=== PATIENT | female | born 1965 | race African-American/Black ===

== ENCOUNTER 2017-10-03 22:42 | Emergency (ER) | payer SELFPAY ==
[2017-10-03 22:52] VITALS: BP 135/90; PULSE 63; TEMP 98.9; BMI 25.0
--- NOTE | 2017-10-04 00:42 | PDOC ---
History of Present Illness - General History Source: Patient Exam Limitations: No Limitations - History of Present Illness Initial Comments: 10/04/17 01:12 The patient is a 52 year old female with no significant PMH who presents to the emergency department with left shoulder pain s/p injury last night. 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 She also notes left sided neck pain which radiates up her neck and down her left arm. She denies falling, hitting her head, or LOC. She denies taking medications for pain. The patient is right hand dominant. The patient denies chest pain, shortness of breath, headache and dizziness. Denies fever, chills, nausea, vomit, diarrhea and constipation. Denies dysuria, frequency, urgency and hematuria. Allergies: Codeine Past surgical history: None reported. Social history: No reported cigarette, alcohol, or drug use. PCP: Dr. Nimo Workman <Matheus Rapp - Last Filed: 10/04/17 01:15> - General History Source: Patient <Edna Ramonan - Last Filed: 10/04/17 01:21> - General Chief Complaint: Pain, Acute Stated Complaint: SHOULDER PAIN Time Seen by Provider: 10/04/17 00:28 Past History <Matheus Rapp - Last Filed: 10/04/17 01:15> - Past Medical History COPD: No - Suicide/Smoking/Psychosocial Hx Smoking History: Never smoked <Refugio Ramon - Last Filed: 10/04/17 01:21> - Past Medical History Allergies/Adverse Reactions: Allergies Allergy/AdvReac Type Severity Reaction Status Date / Time codeine Allergy Verified 10/03/17 22:50 Home Medications: Ambulatory Orders Ibuprofen [Motrin] 600 mg PO TID #30 tablet 10/04/17 Methocarbamol [Robaxin -] 500 mg PO TID #30 tablet 10/04/17 Review of Systems - Review of Systems Able to Perform ROS?: Yes Comments:: 10/04/17 01:15 CONSTITUTIONAL: Absent: fever, chills, diaphoresis, generalized weakness, malaise, loss of appetite HEENT: Absent: rhinorrhea, nasal congestion, throat pain, throat swelling, difficulty swallowing, mouth swelling, ear pain, eye pain, visual Changes CARDIOVASCULAR: Absent: chest pain, syncope, palpitations, irregular heart rate, lightheadedness , peripheral edema RESPIRATORY: Absent: cough, shortness of breath, dyspnea with exertion, orthopnea, wheezing, stridor, hemoptysis GASTROINTESTINAL: Absent: abdominal pain, abdominal distension, nausea, vomiting, diarrhea, constipation, melena, hematochezia GENITOURINARY: Absent: dysuria, frequency, urgency, hesitancy, hematuria, flank pain, genital pain MUSCULOSKELETAL: (+) Left shoulder pain. (+) Left sided neck pain with upper neck and LUE radiation. Absent: arthralgia, joint swelling SKIN: Absent: rash, itching, pallor HEMATOLOGIC/IMMUNOLOGIC: Absent: easy bleeding, easy bruising, lymphadenopathy, frequent infections ENDOCRINE: Absent: unexplained weight gain, unexplained weight loss, heat intolerance, cold intolerance NEUROLOGIC: Absent: headache, focal weakness or paresthesias, dizziness, unsteady gait, seizure, mental status changes, bladder or bowel incontinence PSYCHIATRIC: Absent: anxiety, depression, suicidal or homicidal ideation, hallucinations. <Matheus Rapp - Last Filed: 10/04/17 01:15> *Physical Exam - Vital Signs Last Vital Signs Temp Pulse Resp BP Pulse Ox 98.9 F 63 18 135/90 100 10/03/17 22:50 10/03/17 22:50 10/03/17 22:50 10/03/17 22:50 10/03/17 22:50 - Physical Exam Comments: 10/04/17 01:15 GENERAL: (+) Mild distress. Well developed, well nourished. Awake and alert. HEENT: Normocephalic, atraumatic. PERRLA, EOMI. No conjunctival pallor. Sclera are non- icteric. Moist mucous membranes. Oropharynx is clear. NECK: Supple. Full ROM. No JVD. Carotid pulses 2+ and symmetric, without bruits. No thyromegaly. No lymphadenopathy. CARDIOVASCULAR: Regular rate and rhythm. No murmurs, rubs, or gallops. Distal pulses are 2+ and symmetric. PULMONARY: No evidence of respiratory distress. Lungs clear to auscultation bilaterally. No wheezing, rales or rhonchi. ABDOMINAL: Soft. Non-tender. Non-distended. No rebound or guarding. No organomegaly. Normoactive bowel sounds. MUSCULOSKELETAL Normal range of motion at all joints. No bony deformities or tenderness. No CVA tenderness. EXTREMITIES: (+) Mild tenderness to medial and posterior shoulder girdle. (+) Mild cervical muscle tenderness / spasm. No cyanosis. No clubbing. No edema. No calf tenderness. SKIN: Warm and dry. Normal capillary refill. No rashes. No jaundice. NEUROLOGICAL: Alert, awake, appropriate. Cranial nerves 2-12 intact. No deficits to light touch and temperature in face, upper extremities and lower extremities. No motor deficits in the in face, upper extremities and lower extremities. Normoreflexic in the upper and lower extremities. Normal speech. Toes are down- going bilaterally. Gait is normal without ataxia. PSYCHIATRIC: Cooperative. Good eye contact. Appropriate mood and affect. <Matheus Rapp - Last Filed: 10/04/17 01:15> - Vital Signs Last Vital Signs Temp Pulse Resp BP Pulse Ox 98.9 F 63 18 135/90 100 10/03/17 22:50 10/03/17 22:50 10/03/17 22:50 10/03/17 22:50 10/03/17 22:50 <Refugio Ramon - Last Filed: 10/04/17 01:21> ED Treatment Course - Medications Given in the ED: ED Medications Discontinued Medications Generic Name Dose Route Start Last Admin Trade Name Moisesq PRN Reason Stop Dose Admin Ibuprofen 600 mg 10/04/17 00:51 10/04/17 01:11 Motrin - PO 10/04/17 00:52 600 mg ONCE STA Administration Methocarbamol 500 mg 10/04/17 00:51 10/04/17 01:11 Robaxin - PO 10/04/17 00:52 500 mg ONCE ONE Administration <Matheus Rapp - Last Filed: 10/04/17 01:15> Medical Decision Making - Medical Decision Making 10/04/17 00:55 Dr. Ramon: The scribe's documentation has been prepared under my direction and personally reviewed by me in its entirery. I confirm that the note above accurately reflects all work, treatment, procedures, and medical decision making performed by me. <Refugio Ramon - Last Filed: 10/04/17 01:21> *DC/Admit/Observation/Transfer - Attestations Scribe Attestion: 10/04/17 01:15 Documentation prepared by Matheus Rapp, acting as medical secretary receptionist for Refugio Ramon DO. <Matheus Rapp - Last Filed: 10/04/17 01:15> - Discharge Dispostion Admit: No <Refugio Ramon - Last Filed: 10/04/17 01:21> Diagnosis at time of Disposition: Muscle spasm of left shoulder Contusion of left shoulder Qualifiers: Encounter type: initial encounter Qualified Code(s): S40.012A - Contusion of left shoulder, initial encounter - Discharge Dispostion Disposition: HOME Condition at time of disposition: Stable - Prescriptions Prescriptions: Ibuprofen [Motrin] 600 mg PO TID #30 tablet Methocarbamol [Robaxin -] 500 mg PO TID #30 tablet - Referrals Referrals: Nimo Workman MD [Primary Care Provider] - Manny Deutsch MD [Staff Physician] - - Patient Instructions Printed Discharge Instructions: DI for Contusion, DI for Shoulder Sprain - Post Discharge Activity Forms/Work/School Notes: Back to Work
[2017-10-04] MEDS ORDERED: METHOCARBAMOL 500 MG TABLET PO ONE (00:51)
[2017-10-04] MEDS ORDERED: IBUPROFEN 600 MG TABLET (FP) PO STA (00:51)
[2017-10-04] MEDS ORDERED: IBUPROFEN 600 MG TABLET (FP) PO ONE (01:09)
[2017-10-04] MEDS ORDERED: METHOCARBAMOL 500 MG TABLET ONE (01:09)
== END 2017-10-04 01:30 | disposition home or self-care (01) ==
LOC: JER 22:42
DX: S40.012A Contusion of left shoulder, initial encounter (principal); M62.838 Other muscle spasm; W22.8XXA Striking against or struck by other objects, initial encounter; Y93.F9 Activity, other caregiving; Y92.89 Other specified places as the place of occurrence of the external cause; Y99.0 Civilian activity done for income or pay
CPT/HCPCS: 99281-25

== ENCOUNTER 2018-09-21 01:23 | Emergency (ER) | payer OTHER ==
[2018-09-21 01:41] VITALS: TEMP 97.2; BMI 26.4
[2018-09-21] MEDS ORDERED: SODIUM CHLORIDE 1,000 ML IV SCH (02:15)
[2018-09-21] MEDS ORDERED: METOCLOPRAMIDE HCL INJECTION 10 MG/2 ML VIAL IVPUSH ONE (02:37)
--- NOTE | 2018-09-21 02:39 | PDOC ---
Attending Attestation - Resident Resident Name: Merline Lozada - ED Attending Attestation I have performed the following: I have examined & evaluated the patient, The case was reviewed & discussed with the resident, I agree w/resident's findings & plan - HPI HPI: 09/21/18 07:17 Pt went to the [facility] ER for an on the work injury. She was examined and cleared and on her way driving home, when she started vomiting. Came to the ER. Here she is afebrile, but vomiting. Everyone in our [employer] community is vomiting with viral GI symptoms. - Physicial Exam PE: 09/21/18 07:19 Agree with resident exam. Abd soft NT ND No flank pain No pitting edema Pt has no fever - Medical Decision Making 09/21/18 07:19 Pt has normal WBC and CBC; Pt has no fever; Potassium is low; she will be given K+ and MG+ 09/21/18 07:43 Pt is feeling better and she will be sent home. Heart Score/ECG Review - ECG Intrepretation Rhythm: Regular Rhythm - [place]: Normal - P and SC Delta Wave(s) Present: No WPW: No - QRS Poor R Wave Progression: No Q Wave Present: No - ST and T Early Repolarization: No Non Specific ST-T Wave changes: No Flattened T Waves: No Prolonged Q-T Interval: No - ECG Impressions Normal ECG: Yes Non-specific ST Elevation: Yes Ischemic Changes: Yes (septal flipped Ts) Bradycardia: Yes Torsades victorino Pointes: No WPW: No
--- NOTE | 2018-09-21 02:48 | PDOC ---
History of Present Illness - General Chief Complaint: Nausea/Vomiting Stated Complaint: VOMITING/CONTUSION Time Seen by Provider: 09/21/18 01:54 History Source: Patient Exam Limitations: No Limitations - History of Present Illness Initial Comments: 09/21/18 03:17 53 year old woman with no significant past medical history who presents with headache, shortness of breath, nausea and 6 episodes of NBNB vomiting that onset 4 hours after being given percocet, tramadol and motrin at [facility] when she was being evaluated for L knee pain after a fall onto her knees. The patient has an allergy to codeine. The patient denies throat tightening or restriction of the airway, denies chest pain, abdominal pain, diarrhea, constipation, recent travel, recent illness or fever. The patient is anxious at bedside and provided limited further history. Past History - Past Medical History Allergies/Adverse Reactions: Allergies Allergy/AdvReac Type Severity Reaction Status Date / Time codeine Allergy Verified 09/21/18 01:39 Home Medications: Ambulatory Orders Ibuprofen [Motrin] 600 mg PO TID #30 tablet 10/04/17 Methocarbamol [Robaxin -] 500 mg PO TID #30 tablet 10/04/17 Ondansetron [Zofran -] 4 mg PO BID #14 tablet 09/21/18 COPD: No - Suicide/Smoking/Psychosocial Hx Smoking History: Never smoked Have you smoked in the past 12 months: No Information on smoking cessation initiated: No Hx Alcohol Use: No Drug/Substance Use Hx: No Review of Systems - Review of Systems Able to Perform ROS?: Yes Is the patient limited [place]e proficient: No Constitutional: No: Chills, Diaphoresis, Fever HEENTM: No: Blurred Vision, Tinnitus Respiratory: Yes: See HPI, Shortness of Breath. No: Cough, Orthopnea Cardiac (ROS): No: Chest Pain, Lightheadedness, Palpitations ABD/GI: No: Constipated, Diarrhea, Nausea, Vomiting : No: Burning, Dysuria, Incontinence Musculoskeletal: No: Back Pain Neurological: Yes: Headache. No: Numbness, Tingling *Physical Exam - Vital Signs Last Vital Signs Temp Pulse Resp BP Pulse Ox 97.2 F L 67 18 125/73 100 09/21/18 01:39 09/21/18 01:39 09/21/18 01:39 09/21/18 01:39 09/21/18 01:39 - Physical Exam Comments: 09/21/18 03:33 GENERAL: examined after benadryl, lethargic but arousable. HEAD: No signs of trauma, normocephalic, atraumatic EYES: EOMI, sclera anicteric, conjunctiva clear ENT: oropharynx clear without exudates. Moist mucosa NECK: Normal ROM, supple LUNGS: No distress, speaks full sentences, clear to auscultation bilaterally HEART: Regular rate and rhythm, normal S1 and S2, no murmurs, rubs or gallops, peripheral pulses normal and equal bilaterally. ABDOMEN: Soft, nontender, normoactive bowel sounds. No guarding, no rebound. No masses EXTREMITIES : Normal inspection, no edema. No clubbing or cyanosis, L leg in air cast, palpable pulses NEUROLOGICAL: Cranial nerves II through XII grossly intact. Normal speech, no focal sensorimotor deficits SKIN: Warm, Dry, normal turgor, no rashes or lesions noted Moderate Sedation - Procedure Monitoring Vital Signs: Procedure Monitoring Vital Signs Temperature 97.2 F L 09/21/18 01:39 Pulse Rate 67 09/21/18 01:39 Respiratory Rate 18 09/21/18 01:39 Blood Pressure 125/73 09/21/18 01:39 O2 Sat by Pulse Oximetry (%) 100 09/21/18 01:39 ED Treatment Course - LABORATORY CBC & Chemistry Diagram: 09/21/18 03:50 09/21/18 03:50 - Medications Given in the ED: ED Medications Discontinued Medications Generic Name Dose Route Start Last Admin Trade Name Freq PRN Reason Stop Dose Admin Diphenhydramine HCl 50 mg 09/21/18 02:07 09/21/18 02:26 Benadryl Injection - IVPUSH 09/21/18 02:08 50 mg ONCE ONE Administration Medical Decision Making - Medical Decision Making 09/21/18 03:22 53 year old woman with no significant past medical history who presents with headache, shortness of breath and rapid breathing, nausea and 6 episodes of NBNB vomiting that onset 4 hours after being given percocet, tramadol and motrin at [facility] when she was being evaluated for L knee pain after a fall onto her knees. The patient has an allergy to codeine. The patient denies throat tightening or restriction of the airway, denies chest pain , abdominal pain, diarrhea, constipation, recent travel, recent illness or fever. The patient is anxious at bedside and provided limited further history. ED Course: Consider differnetial including but not limited to allergix reaction vs anxiety vs gastroenteritis Patient treated with ivf, benadryl and reglan for symptoms of possible allergic reaction, headache and nausea. Will monitor and reassess patient. Patient reassessed notes improvement of all symptoms. Patient desires to go home. Patient stable for discharge. Informed of all lab and imaging results. Given follow up instructions and strict return precautions. Patient expressed understanding and agree to plan. *DC/Admit/Observation/Transfer Diagnosis at time of Disposition: Vomiting - Discharge Dispostion Disposition: HOME Condition at time of disposition: Stable Decision to Admit order: No - Prescriptions Prescriptions: Ondansetron [Zofran -] 4 mg PO BID #14 tablet - Referrals - Patient Instructions Printed Discharge Instructions: DI for Vomiting -- Adult Additional Instructions: You were seen in the ED for complaints of vomiting. In the ED you were evaluated with labwork. Your results did not present a need for immediate hospitalization. You are advised to follow up with your Primary Care Physician within 1 week. You were given a prescription for anti-nausea Zofran medication. Please take all medications as indicated. Return to the ED immediately if you experience worsening dizziness, headaches, nausea, vomiting, fevers, chest pain or shortness of breath. - Post Discharge Activity
[2018-09-21 04:02] LABS: HEMATOCRIT 35.2 % (32.4-45.2); MCH 27.7 pg (25.7-33.7); MEAN CELL VOLUME 81.3 fl (80-96); RBC 4.33 M/mm3 (3.60-5.2); RDW 13.3 % (11.6-15.6)
[2018-09-21 04:50] LABS: ALBUMIN 3.4 g/dl (3.4-5.0); ALK PHOS 78 U/L (45-117); ANION GAP 9 MMOL/L (8-16); BILIRUBIN,TOTAL 0.4 mg/dL (0.2-1); BLOOD UREA NITROGEN 11 mg/dL (7-18); CALCIUM 7.9 mg/dL (8.5-10.1); CHLORIDE 106 mmol/L (98-107); CO2 23 mmol/L (21-32); CREATININE 0.9 mg/dL (0.55-1.3); GLUCOSE,RANDOM 102 mg/dL (74-106); POTASSIUM 3.4 mmol/L (3.5-5.1); SGOT/AST 23 U/L (15-37); SGPT/ALT 23 U/L (13-61); SODIUM 139 mmol/L (136-145); TOT PROT 6.8 g/dl (6.4-8.2)
[2018-09-21 05:05] LABS: PLATELET ESTIMATE NORMAL
[2018-09-21 05:06] LABS: MEAN PLT VOLUME 9.7 fl (7.5-11.1); PLATELET COUNT 156 K/MM3 (134-434); WHITE BLOOD COUNT 6.4 K/mm3 (4.0-10.0)
[2018-09-21] MEDS ORDERED: MAGNESIUM SULF 50% (8.12 MEQ/2 ML-1 GM VIAL) IVPB ONE (06:31)
[2018-09-21] MEDS ORDERED: POTASSIUM CHLORIDE TABS 20 MEQ TABLET.ER (FP) PO ONE (06:31)
[2018-09-21 09:09] VITALS: BP 134/85; PULSE 52
--- NOTE | 2018-09-21 11:24 | EKG ---
Test Reason : Blood Pressure : / mmHG Vent. Rate : 052 BPM Atrial Rate : 052 BPM P-R Int : 206 ms QRS Dur : 088 ms QT Int : 472 ms P-R-T Axes : 036 143 048 degrees QTc Int : 438 ms SINUS BRADYCARDIA RIGHT AXIS DEVIATION LOW VOLTAGE QRS SEPTAL INFARCT (CITED ON OR BEFORE 13-FEB-2007) ABNORMAL ECG WHEN COMPARED WITH ECG OF 13-FEB-2007 10:28, NO SIGNIFICANT CHANGE WAS FOUND Confirmed by QUINTON HOLLIS MD ([id number]) on 09/21/2018 11:24:42 AM Referred By: Confirmed By:QUINTON HOLLIS MD
== END 2018-09-21 09:15 | disposition home or self-care (01) ==
LOC: JER 01:23
PROC: 3E033GC Introduction of Other Therapeutic Substance into Peripheral Vein, Percutaneous Approach (ICD-10-PCS; principal; 2018-09-21)
DX: R11.10 Vomiting, unspecified (principal); E87.6 Hypokalemia
CPT/HCPCS: 36415; 80053; 85025; 93005; 93010; 99284-25; J7030

== ENCOUNTER 2021-04-30 16:01 | Emergency (ER) | payer OTHER ==
[2021-04-30 16:14] VITALS: BP 133/75; PULSE 58; TEMP 97; BMI 24.0
[2021-04-30] MEDS ORDERED: ONDANSETRON 4 MG/2 ML VIAL IVPUSH ONE (16:39)
[2021-04-30] MEDS ORDERED: SODIUM CHLORIDE 1,000 ML IV STA (16:39)
[2021-04-30] MEDS ORDERED: ONDANSETRON 4 MG/2 ML VIAL ONE (17:01)
[2021-04-30 17:07] LABS: BASO % 0.8 % (0-2.0); EOS % 6.6 % (0-4.5); HEMATOCRIT 34.2 % (32.4-45.2); HEMOGLOBIN 11.2 GM/dL (10.7-15.3); MCH 26.6 pg (25.7-33.7); MCHC 32.9 g/dl (32.0-36.0); MEAN CELL VOLUME 80.9 fl (80-96); MEAN PLT VOLUME 7.8 fl (7.5-11.1); MONO % 7.2 % (3.8-10.2); NEUT % 44.4 % (42.8-82.8); PLATELET COUNT 180 10^3/uL (134-434); RBC 4.22 M/mm3 (3.60-5.2)
[2021-04-30 17:26] LABS: CHLORIDE 110 mmol/L (98-107); SODIUM 144 mmol/L (136-145)
[2021-04-30 17:28] LABS: ALBUMIN 3.6 g/dl (3.4-5.0); ANION GAP 7 MMOL/L (8-16); BLOOD UREA NITROGEN 16.9 mg/dL (7-18); CALCIUM 8.3 mg/dL (8.5-10.1); CO2 27 mmol/L (21-32); GLUCOSE,RANDOM 128 mg/dL (74-106); LIPASE 186 U/L (73-393)
[2021-04-30 17:32] LABS: CREATININE 1.2 mg/dL (0.55-1.3); SGOT/AST 20 U/L (15-37); SGPT/ALT 20 U/L (13-61)
[2021-04-30 17:33] LABS: BILIRUBIN,TOTAL 0.4 mg/dL (0.2-1); TOT PROT 6.9 g/dl (6.4-8.2)
[2021-04-30 17:35] LABS: ALK PHOS 57 U/L (45-117)
[2021-04-30] MEDS ORDERED: ACETAMINOPHEN 1000 MG/100 ML VIAL (NON FORMULARY) IVPB ONE (18:37)
[2021-04-30] MEDS ORDERED: ACETAMINOPHEN INJECTION 100 ML IVPB ONE (18:49)
== END 2021-04-30 23:39 | disposition home or self-care (01) ==
LOC: JER 16:01 → JERFT 16:01
PROC: 3E033NZ Introduction of Analgesics, Hypnotics, Sedatives into Peripheral Vein, Percutaneous Approach (ICD-10-PCS; principal; 2021-04-30)
PROC: 3E033GC Introduction of Other Therapeutic Substance into Peripheral Vein, Percutaneous Approach (ICD-10-PCS; 2021-04-30)
PROC: 3E0337Z Introduction of Electrolytic and Water Balance Substance into Peripheral Vein, Percutaneous Approach (ICD-10-PCS; 2021-04-30)
DX: K80.20 Calculus of gallbladder without cholecystitis without obstruction (principal); M25.511 Pain in right shoulder
CPT/HCPCS: 36415; 73030-TC-RT-FY; 76705-TC; 80053; 82550; 83690; 84484; 85025; 93005; 93010; 99284-25; C9803; J0131; U0003; U0005

== ENCOUNTER 2021-10-22 15:21 | Emergency (ER) | payer OTHER ==
[2021-10-22 15:31] VITALS: TEMP 97; BMI 26.6
[2021-10-22] MEDS ORDERED: MECLIZINE HCL 25 MG TABLET (FP) PO ONE (16:49)
[2021-10-22] MEDS ORDERED: ACETAMINOPHEN 500 MG TABLET (FP) PO ONE (16:49)
[2021-10-22] MEDS ORDERED: MECLIZINE HCL 25 MG TABLET (FP) ONE (16:52)
[2021-10-22] MEDS ORDERED: ACETAMINOPHEN 325 MG TABLET (FP) ONE (16:52)
[2021-10-22 17:23] LABS: BASO % 1.1 % (0-2.0); EOS % 3.6 % (0-4.5); HEMATOCRIT 35.7 % (32.4-45.2); HEMOGLOBIN 11.7 GM/dL (10.7-15.3); MCH 26.6 pg (25.7-33.7); MCHC 32.7 g/dl (32.0-36.0); MEAN CELL VOLUME 81.2 fl (80-96); MEAN PLT VOLUME 8.1 fl (7.5-11.1); NEUT % 46.3 % (42.8-82.8); PLATELET COUNT 195 10^3/uL (134-434); RDW 13.2 % (11.6-15.6); WHITE BLOOD COUNT 3.7 K/mm3 (4.0-10.0)
[2021-10-22 17:44] LABS: CHLORIDE 109 mmol/L (98-107); SODIUM 142 mmol/L (136-145)
[2021-10-22 17:46] LABS: CALCIUM 8.8 mg/dL (8.5-10.1)
[2021-10-22 17:47] LABS: ALBUMIN 3.6 g/dl (3.4-5.0); ANION GAP 6 MMOL/L (8-16); BLOOD UREA NITROGEN 17.4 mg/dL (7-18); CO2 28 mmol/L (21-32); GLUCOSE,RANDOM 99 mg/dL (74-106)
[2021-10-22 17:50] LABS: CREATININE 1.1 mg/dL (0.55-1.3); SGOT/AST 17 U/L (15-37); SGPT/ALT 17 U/L (13-61)
[2021-10-22 17:52] LABS: ALK PHOS 61 U/L (45-117); BILIRUBIN,TOTAL 0.4 mg/dL (0.2-1)
[2021-10-22 18:29] VITALS: BP 129/83; PULSE 58
== END 2021-10-22 19:03 | disposition home or self-care (01) ==
LOC: JER 15:21
DX: R00.2 Palpitations (principal)
CPT/HCPCS: 36415; 80053; 82550; 84484; 85025; 93005; 93010; 99284-25

== ENCOUNTER 2022-06-09 11:53 | Emergency (ER) | payer OTHER ==
[2022-06-09 11:59] VITALS: BP 118/68; PULSE 64; RESP 16; TEMP 98.1; BMI 24.9
[2022-06-09] MEDS ORDERED: diazePAM 5 MG TABLET PO ONE (12:48)
[2022-06-09] MEDS ORDERED: KETOROLAC TROMETHAMINE 30 MG/1 ML VIAL IM ONE (12:48)
[2022-06-09] MEDS ORDERED: LIDOCAINE 5% TOPICAL PATCH TP ONE (12:49)
[2022-06-09] MEDS ORDERED: diazePAM 5 MG TABLET ONE (12:50)
[2022-06-09] MEDS ORDERED: LIDOCAINE 5% TOPICAL PATCH ONE (12:50)
[2022-06-09] MEDS ORDERED: KETOROLAC TROMETHAMINE 30 MG/1 ML VIAL ONE (12:50)
[2022-06-09] MEDS ORDERED: LIDOCAINE PATCH REMOVAL MC ONE (22:00)
== END 2022-06-09 13:20 | disposition home or self-care (01) ==
LOC: JERFT 11:53
PROC: 3E023GC Introduction of Other Therapeutic Substance into Muscle, Percutaneous Approach (ICD-10-PCS; principal; 2022-06-09)
DX: M67.853 Other specified disorders of tendon, right hip (principal); M77.8 Other enthesopathies, not elsewhere classified
CPT/HCPCS: 99284-25

== ENCOUNTER 2022-06-17 14:26 | Emergency (ER) | payer OTHER ==
[2022-06-17 14:28] VITALS: BP 139/79; PULSE 51; RESP 18; TEMP 98; BMI 24.0
[2022-06-17] MEDS ORDERED: KETOROLAC TROMETHAMINE 60 MG/2 ML VIAL IM ONE (14:59)
[2022-06-17] MEDS ORDERED: diazePAM 2 MG TABLET PO ONE (15:00)
[2022-06-17] MEDS ORDERED: ACETAMINOPHEN 325 MG TABLET (FP) PO ONE (15:00)
[2022-06-17] MEDS ORDERED: LIDOCAINE 5% TOPICAL PATCH TP ONE (15:00)
[2022-06-17] MEDS ORDERED: LIDOCAINE 5% TOPICAL PATCH ONE ×2 (15:03→15:12)
[2022-06-17] MEDS ORDERED: KETOROLAC TROMETHAMINE 30 MG/1 ML VIAL ONE (15:04)
[2022-06-17] MEDS ORDERED: diazePAM 2 MG TABLET ONE ×2 (15:04→15:12)
[2022-06-17] MEDS ORDERED: ACETAMINOPHEN 325 MG TABLET (FP) ONE (15:04)
[2022-06-17] MEDS ORDERED: LIDOCAINE PATCH REMOVAL MC SCH (22:00)
== END 2022-06-17 17:07 | disposition home or self-care (01) ==
LOC: JER 14:26 → JERFT 14:26
PROC: 3E0233Z Introduction of Anti-inflammatory into Muscle, Percutaneous Approach (ICD-10-PCS; principal; 2022-06-17)
DX: M54.50 Low back pain, unspecified (principal)
CPT/HCPCS: 72100-TC-FY; 96372; 99284-25

== ENCOUNTER → 2022-11-01 | Day surgery (SDC) | payer OTHER | END | disposition home or self-care (01) | LOC: JRADIR 10:23 | PROVIDERS: ATTEND Internal Medicine Endocrinology, Diabetes & Metabolism | PROC: 0G9H3ZX Drainage of Right Thyroid Gland Lobe, Percutaneous Approach, Diagnostic (ICD-10-PCS; principal; 2022-11-01) | DX: E04.1 Nontoxic single thyroid nodule (principal) | CPT/HCPCS: 10005; 76942; 88173; 88305-TC ==

== ENCOUNTER 2023-03-07 23:52 | Emergency (ER) | payer OTHER ==
[2023-03-08 00:03] VITALS: RESP 18; BMI 24.0
[2023-03-08] MEDS ORDERED: ACETAMINOPHEN 500 MG TABLET (FP) PO ONE (00:36)
[2023-03-08] MEDS ORDERED: METHOCARBAMOL 750 MG TAB PO ONE (00:36)
[2023-03-08] MEDS ORDERED: LIDOCAINE 5% TOPICAL PATCH TP ONE (00:36)
[2023-03-08] MEDS ORDERED: METHOCARBAMOL 500 MG TABLET ONE (00:52)
[2023-03-08] MEDS ORDERED: ACETAMINOPHEN 325 MG TABLET (FP) ONE (00:52)
[2023-03-08] MEDS ORDERED: LIDOCAINE 5% TOPICAL PATCH ONE (00:53)
[2023-03-08 01:19] LABS: BASO % 0.5 % (0-2.0); EOS % 8.7 % (0-4.5); HEMATOCRIT 36.7 % (32.4-45.2); HEMOGLOBIN 11.9 GM/dL (10.7-15.3); LYMPH % 37.4 % (8-40); MCH 26.5 pg (25.7-33.7); MCHC 32.5 g/dl (32.0-36.0); MEAN CELL VOLUME 81.7 fl (80-96); MEAN PLT VOLUME 8.3 fl (7.5-11.1); MONO % 11.1 % (3.8-10.2); NEUT % 42.3 % (42.8-82.8); PLATELET COUNT 181 10^3/uL (134-434); RBC 4.49 M/mm3 (3.60-5.2); RDW 13.9 % (11.6-15.6); WHITE BLOOD COUNT 6.2 K/mm3 (4.0-10.0)
[2023-03-08 01:43] LABS: POTASSIUM 4.1 mmol/L (3.5-5.1)
[2023-03-08 01:45] LABS: BLOOD UREA NITROGEN 21.6 mg/dL (7-18); CALCIUM 9.2 mg/dL (8.5-10.1); MAGNESIUM 2.4 mg/dL (1.8-2.4)
[2023-03-08 01:50] LABS: BILIRUBIN,TOTAL 0.4 mg/dL (0.2-1); TOT PROT 7.3 g/dl (6.4-8.2)
[2023-03-08 03:00] VITALS: BP 128/78; PULSE 66; TEMP 98.1
[2023-03-08] MEDS ORDERED: LIDOCAINE PATCH REMOVAL MC ONE (13:00)
== END 2023-03-08 03:02 | disposition home or self-care (01) ==
LOC: JER 23:52
DX: M54.50 Low back pain, unspecified (principal); M46.1 Sacroiliitis, not elsewhere classified
CPT/HCPCS: 36415; 72131-TC; 80053; 83735; 85025; 99284-25

== ENCOUNTER 2023-05-09 13:31 | Emergency (ER) | payer OTHER ==
[2023-05-09 13:38] VITALS: BP 123/69; PULSE 54; RESP 20; TEMP 98.1; BMI 24.0
[2023-05-09] MEDS ORDERED: LACTATED RINGERS SOLUTION 1000 ML INFUS.BAG IV ONE (14:25)
[2023-05-09 15:02] LABS: BASO % 1.1 % (0-2.0); EOS % 6.3 % (0-4.5); HEMATOCRIT 35.3 % (32.4-45.2); HEMOGLOBIN 11.2 GM/dL (10.7-15.3); LYMPH % 40.4 % (8-40); MCH 26.6 pg (25.7-33.7); MCHC 31.7 g/dl (32.0-36.0); MEAN CELL VOLUME 83.7 fl (80-96); MEAN PLT VOLUME 9.2 fl (7.5-11.1); MONO % 9.6 % (3.8-10.2); NEUT % 42.6 % (42.8-82.8); PLATELET COUNT 179 10^3/uL (134-434); RBC 4.21 M/mm3 (3.60-5.2); RDW 13.8 % (11.6-15.6); WHITE BLOOD COUNT 4.3 K/mm3 (4.0-10.0)
[2023-05-09 15:09] LABS: INR 1.05 (0.83-1.09); PROTHROMBIN TIME (PATIENT) 12.2 SEC (9.7-13.0)
[2023-05-09 15:12] LABS: ACTIVATED PTT 28.9 SECONDS (25.2-36.5)
[2023-05-09 15:24] LABS: POTASSIUM 3.8 mmol/L (3.5-5.1)
[2023-05-09 15:26] LABS: ALBUMIN 3.6 g/dl (3.4-5.0); BLOOD UREA NITROGEN 15.8 mg/dL (7-18); CALCIUM 8.8 mg/dL (8.5-10.1); MAGNESIUM 2.3 mg/dL (1.8-2.4)
[2023-05-09 15:29] LABS: CREATININE 1.2 mg/dL (0.55-1.3)
[2023-05-09 15:31] LABS: BILIRUBIN,TOTAL 0.5 mg/dL (0.2-1)
[2023-05-09 15:47] LABS: N-TERMINAL BNP 63.6 pg/ml (5-125)
== END 2023-05-09 18:21 | disposition home or self-care (01) ==
LOC: JER 13:31
DX: R51.9 Headache, unspecified (principal); R00.2 Palpitations; M54.9 Dorsalgia, unspecified; G89.29 Other chronic pain; H53.8 Other visual disturbances; R00.1 Bradycardia, unspecified; Z20.822 Contact with and (suspected) exposure to COVID-19
CPT/HCPCS: 0241U-QW; 36415; 70450-TC; 71045-TC-FY; 80053; 83735; 83880; 84443; 84484; 85025; 85610; 85730; 93005; 93010; 99285-25

== ENCOUNTER 2024-05-29 10:09 | Emergency (ER) | payer OTHER ==
[2024-05-29 10:17] VITALS: BP 138/77; PULSE 56; RESP 18; TEMP 98.8
[2024-05-29 10:18] VITALS: BMI 24.4
[2024-05-29] MEDS ORDERED: LIDOCAINE 4% PATCH TP ONE (13:01)
[2024-05-29] MEDS ORDERED: KETOROLAC TROMETHAMINE 30 MG/1 ML VIAL ONE (13:01)
[2024-05-29] MEDS: KETOROLAC TROMETHAMINE 30 MG/1 ML VIAL IM ONE (13:07)
[2024-05-29] MEDS: LIDOCAINE 4% PATCH TP ONE (13:07)
[2024-05-29] MEDS ORDERED: LIDOCAINE PATCH REMOVAL MC ONE (22:00)
== END 2024-05-29 14:31 | disposition home or self-care (01) ==
LOC: JER 10:09
PROC: 3E0233Z Introduction of Anti-inflammatory into Muscle, Percutaneous Approach (ICD-10-PCS; principal; 2024-05-29)
DX: S16.1XXA Strain of muscle, fascia and tendon at neck level, initial encounter (principal); M25.511 Pain in right shoulder; G89.29 Other chronic pain; M54.6 Pain in thoracic spine; X58.XXXA Exposure to other specified factors, initial encounter
CPT/HCPCS: 93005; 93010; 99284-25

== ENCOUNTER 2024-07-01 15:58 | Emergency (ER) | payer OTHER ==
[2024-07-01 16:12] VITALS: BP 119/64; PULSE 62; RESP 18; TEMP 98.4; BMI 24.9
[2024-07-01] MEDS ORDERED: METOCLOPRAMIDE HCL 10 MG TABLET (FP) PO ONE (17:31)
[2024-07-01] MEDS ORDERED: MECLIZINE HCL 25 MG TABLET (FP) ONE (17:31)
[2024-07-01] MEDS: MECLIZINE HCL 25 MG TABLET (FP) PO ONE (17:36)
[2024-07-01] MEDS: METOCLOPRAMIDE HCL 10 MG TABLET (FP) PO ONE (17:36)
[2024-07-01 17:44] LABS: BASO % 0.9 % (0-2.0); EOS % 6.9 % (0-4.5); HEMATOCRIT 38.5 % (32.4-45.2); HEMOGLOBIN 12.6 GM/dL (10.7-15.3); LYMPH % 36.3 % (8-40); MCH 26.6 pg (25.7-33.7); MCHC 32.6 g/dl (32.0-36.0); MEAN CELL VOLUME 81.4 fl (80-96); MEAN PLT VOLUME 8.2 fl (7.5-11.1); MONO % 8.1 % (3.8-10.2); NEUT % 47.8 % (42.8-82.8); PLATELET COUNT 229 10^3/uL (134-434); RBC 4.73 M/mm3 (3.60-5.2); RDW 14.3 % (11.6-15.6); WHITE BLOOD COUNT 4.3 K/mm3 (4.0-10.0)
[2024-07-01 17:45] LABS: EPI CELLS 7 /uL (0-25.1); HYALINE CASTS 1 /uL (0-3.1); PH,URINE 5.5 (5.0-8.0); URINE APPEARANCE CLEAR; URINE BACTERIA 10 /uL (0-1359); URINE BILIRUBIN NEGATIVE (NEGATIVE); URINE COLOR YELLOW; URINE GLUCOSE (UA) NEGATIVE (NEGATIVE); URINE KETONE NEGATIVE (NEGATIVE); URINE LEUK ESTERASE 1+ (NEGATIVE); URINE NITRITE NEGATIVE (NEGATIVE); URINE PROTEIN NEGATIVE (NEGATIVE); URINE RBC 13 /uL (0-23.9); URINE UROBILINOGEN 0.2 mg/dL (0.2-1.0); URINE WBC 13 /uL (0-25.8)
[2024-07-01 17:58] LABS: POTASSIUM 3.6 mmol/L (3.5-5.1)
[2024-07-01 18:00] LABS: CALCIUM 9.1 mg/dL (8.5-10.1)
[2024-07-01 18:01] LABS: BLOOD UREA NITROGEN 14.8 mg/dL (7-18); MAGNESIUM 2.4 mg/dL (1.8-2.4)
[2024-07-01 18:04] LABS: PHOSPHOROUS 3.2 mg/dL (2.5-4.9)
[2024-07-01 18:06] LABS: BILIRUBIN,TOTAL 0.5 mg/dL (0.2-1); TOT PROT 7.8 g/dl (6.4-8.2)
== END 2024-07-01 21:41 | disposition home or self-care (01) ==
LOC: JER 15:58
DX: R00.2 Palpitations (principal); R55 Syncope and collapse; R42 Dizziness and giddiness; N39.0 Urinary tract infection, site not specified; Z20.822 Contact with and (suspected) exposure to COVID-19
CPT/HCPCS: 0241U-QW; 36415; 71046-TC-FY; 80053; 81003; 83735; 84100; 84439; 84443; 84484; 85025; 87077; 87086; 93005; 93010; 99285-25

== ENCOUNTER 2024-08-06 05:13 | Day surgery (SDC) | payer OTHER ==
[2024-08-05 11:53] VITALS: BMI 24.9
[2024-08-06] MEDS ORDERED: LIDOCAINE HCL/PF 1% SDV 5ML VIAL ONE (11:35)
[2024-08-06] MEDS: BUPIVACAINE HCL/PF 0.5% (5 MG/ML) 30 ML VIAL IJ ONE (11:44)
[2024-08-06] MEDS ORDERED: ACETAMINOPHEN 500 MG TABLET (FP) ONE (12:03)
[2024-08-06] MEDS: ACETAMINOPHEN 500 MG TABLET (FP) PO PRN (12:06)
[2024-08-06 15:12] VITALS: RESP 18
[2024-08-06 16:13] VITALS: TEMP 97.9
[2024-08-06 17:33] VITALS: BP 140/78; PULSE 50
== END 2024-08-06 16:30 | disposition home or self-care (01) ==
LOC: JASU-SURG 05:13
PROVIDERS: ATTEND Pain Medicine Pain Medicine
PROC: 3E0T33Z Introduction of Anti-inflammatory into Peripheral Nerves and Plexi, Percutaneous Approach (ICD-10-PCS; 2024-08-06)
PROC: 3E0T3BZ Introduction of Anesthetic Agent into Peripheral Nerves and Plexi, Percutaneous Approach (ICD-10-PCS; principal; 2024-08-06 11:45)
DX: M48.062 Spinal stenosis, lumbar region with neurogenic claudication (principal)
CPT/HCPCS: 76000-TC-FY

== ENCOUNTER 2024-09-24 04:12 | Day surgery (SDC) | payer OTHER ==
[2024-09-18 11:29] VITALS: BMI 24.9
[2024-09-24] MEDS ORDERED: ACETAMINOPHEN 500 MG TABLET (FP) PO PRN (08:38)
[2024-09-24 13:09] VITALS: RESP 18; TEMP 97.3
[2024-09-24 13:58] VITALS: BP 131/77; PULSE 50
== END 2024-09-24 14:55 | disposition home or self-care (01) ==
LOC: JASU-SURG 04:12
PROVIDERS: ATTEND Pain Medicine Pain Medicine
PROC: 3E0T33Z Introduction of Anti-inflammatory into Peripheral Nerves and Plexi, Percutaneous Approach (ICD-10-PCS; 2024-09-24)
PROC: 3E0T3BZ Introduction of Anesthetic Agent into Peripheral Nerves and Plexi, Percutaneous Approach (ICD-10-PCS; principal; 2024-09-24 12:45)
DX: M47.812 Spondylosis without myelopathy or radiculopathy, cervical region (principal)
CPT/HCPCS: 76000-TC-FY

== ENCOUNTER 2024-11-05 03:54 | Day surgery (SDC) | payer OTHER ==
[2024-11-04 09:37] VITALS: BMI 24.9
[2024-11-05] MEDS ORDERED: ACETAMINOPHEN 500 MG TABLET (FP) PO PRN (08:38)
[2024-11-05 08:54] VITALS: RESP 16
[2024-11-05] MEDS ORDERED: LIDOCAINE HCL/PF 2% SDV 5ML VIAL ONE (09:45)
[2024-11-05] MEDS: LIDOCAINE HCL 1% PRESERVATIVE FREE - 30ML VIAL IJ ONE ×2 (09:54)
[2024-11-05] MEDS: LIDOCAINE HCL/PF 2% SDV 5ML VIAL INF ONE ×2 (09:54)
[2024-11-05] MEDS: DEXAMETHASONE SOD PHOSPHATE 10 MG/1 ML VIAL IVPUSH ONE ×3 (10:00→10:07)
[2024-11-05] MEDS: BUPIVACAINE HCL/PF 0.5% (5MG/ML) 10 ML VIAL IJ ONE ×4 (10:00→10:07)
[2024-11-05 11:04] VITALS: BP 154/83; PULSE 52; TEMP 98
== END 2024-11-05 11:25 | disposition home or self-care (01) ==
LOC: JASU-SURG 03:54
PROVIDERS: ATTEND Pain Medicine Pain Medicine
PROC: 01513ZZ Destruction of Cervical Nerve, Percutaneous Approach (ICD-10-PCS; principal; 2024-11-05 09:30)
DX: M47.812 Spondylosis without myelopathy or radiculopathy, cervical region (principal)
CPT/HCPCS: 76000-TC-FY; J1100

== ENCOUNTER 2024-11-23 19:48 | Observation (INO) | payer OTHER ==
[2024-11-23 20:00] VITALS: BMI 25.7
[2024-11-23] MEDS ORDERED: KETOROLAC TROMETHAMINE 30 MG/1 ML VIAL ONE (20:32)
[2024-11-23] MEDS: KETOROLAC TROMETHAMINE 30 MG/1 ML VIAL IM ONE (21:12)
[2024-11-24] MEDS ORDERED: ACETAMINOPHEN INJECTION 100 ML ONE (00:32)
[2024-11-24] MEDS: ACETAMINOPHEN 1000 MG/100 ML BAG IVPB ONE (00:43)
[2024-11-24 00:48] LABS: BASO % 1.2 % (0-2.0); EOS % 6.5 % (0-4.5); HEMATOCRIT 37.9 % (32.4-45.2); HEMOGLOBIN 12.1 GM/dL (10.7-15.3); LYMPH % 41.9 % (8-40); MCH 26.3 pg (25.7-33.7); MCHC 31.9 g/dl (32.0-36.0); MEAN CELL VOLUME 82.3 fl (80-96); NEUT % 42.4 % (42.8-82.8); PLATELET COUNT 195 10^3/uL (134-434); RDW 14.4 % (11.6-15.6)
[2024-11-24 01:13] LABS: POTASSIUM 3.5 mmol/L (3.5-5.1)
[2024-11-24 01:20] LABS: ALBUMIN 3.4 g/dl (3.4-5.0); BLOOD UREA NITROGEN 21.2 mg/dL (7-18); CALCIUM 8.9 mg/dL (8.5-10.1)
[2024-11-24 01:21] LABS: CREATININE 0.9 mg/dL (0.55-1.3)
[2024-11-24 01:23] LABS: BILIRUBIN,TOTAL 0.8 mg/dL (0.2-1); TOT PROT 6.6 g/dl (6.4-8.2)
[2024-11-24] MEDS ORDERED: KETOROLAC TROMETHAMINE 30 MG/1 ML VIAL IVPUSH PRN (03:00)
[2024-11-24] MEDS: traMADol HCL 50 MG TABLET PO ONE (05:08)
[2024-11-24] MEDS: ACETAMINOPHEN 1000 MG/100 ML BAG IVPB SCH (05:51)
[2024-11-24 07:29] LABS: N-TERMINAL BNP 66.9 pg/ml (5-125)
[2024-11-24 09:09] LABS: HEMATOCRIT 36.5 % (32.4-45.2); HEMOGLOBIN 11.6 GM/dL (10.7-15.3); MCH 26.4 pg (25.7-33.7); MCHC 31.8 g/dl (32.0-36.0); MEAN CELL VOLUME 83.2 fl (80-96); MEAN PLT VOLUME 8.7 fl (7.5-11.1); PLATELET COUNT 189 10^3/uL (134-434); RBC 4.39 M/mm3 (3.60-5.2); RDW 14.1 % (11.6-15.6); WHITE BLOOD COUNT 3.6 K/mm3 (4.0-10.0)
[2024-11-24 09:19] LABS: POTASSIUM 3.8 mmol/L (3.5-5.1)
[2024-11-24 09:21] LABS: CALCIUM 8.7 mg/dL (8.5-10.1)
[2024-11-24 09:22] LABS: ALBUMIN 3.3 g/dl (3.4-5.0); BLOOD UREA NITROGEN 20.6 mg/dL (7-18); MAGNESIUM 2.1 mg/dL (1.8-2.4)
[2024-11-24 09:25] LABS: PHOSPHOROUS 4.9 mg/dL (2.5-4.9)
[2024-11-24 09:26] LABS: TOT PROT 6.4 g/dl (6.4-8.2)
[2024-11-24] MEDS ORDERED: ENOXAPARIN NA (PORCINE) 40 MG/0.4 ML DISP.SYRIN SQ SCH (10:00)
[2024-11-24] MEDS ORDERED: METOPROLOL TARTRATE 25 MG TABLET (FP) PO PRN (10:00)
[2024-11-24] MEDS: traMADol HCL 50 MG TABLET PO PRN (11:11)
[2024-11-24] MEDS: LOSARTAN POTASSIUM 25 MG TABLET PO SCH (17:20)
[2024-11-24] MEDS: ONDANSETRON 4 MG/2 ML VIAL IVPUSH PRN (21:50)
[2024-11-24] MEDS: ATORVASTATIN CA 20 MG TABLET (FP) PO SCH (21:50)
[2024-11-25 07:54] LABS: POTASSIUM 4.2 mmol/L (3.5-5.1)
[2024-11-25 08:01] LABS: BASO % 0.5 % (0-2.0); EOS % 2.6 % (0-4.5); HEMATOCRIT 35.8 % (32.4-45.2); HEMOGLOBIN 12.1 GM/dL (10.7-15.3); LYMPH % 36.5 % (8-40); MCH 27.3 pg (25.7-33.7); MCHC 33.7 g/dl (32.0-36.0); MEAN PLT VOLUME 8.4 fl (7.5-11.1); MONO % 6.7 % (3.8-10.2); NEUT % 53.7 % (42.8-82.8); PLATELET COUNT 198 10^3/uL (134-434); RBC 4.42 M/mm3 (3.60-5.2); RDW 14.7 % (11.6-15.6)
[2024-11-25 08:03] LABS: ALBUMIN 3.2 g/dl (3.4-5.0); BLOOD UREA NITROGEN 19.1 mg/dL (7-18); CALCIUM 8.9 mg/dL (8.5-10.1); MAGNESIUM 2.3 mg/dL (1.8-2.4); TOT PROT 6.5 g/dl (6.4-8.2)
[2024-11-25 08:04] LABS: BILIRUBIN,TOTAL 0.7 mg/dL (0.2-1)
[2024-11-25 08:07] LABS: CREATININE 0.9 mg/dL (0.55-1.3)
[2024-11-25] MEDS ORDERED: KETOROLAC TROMETHAMINE 30 MG/1 ML VIAL IM ONE (11:22)
[2024-11-25] MEDS: KETOROLAC TROMETHAMINE 30 MG/1 ML VIAL IVPUSH ONE (11:54)
[2024-11-27 06:51] VITALS: RESP 18
[2024-11-27 09:20] VITALS: BP 133/79; PULSE 50; TEMP 97.9
== END 2024-11-27 12:28 ==
LOC: JER 19:48 → JERBED 23:23 → J7W 11-24 04:20
PROVIDERS: ADMIT Internal Medicine
PROC: 3E033NZ Introduction of Analgesics, Hypnotics, Sedatives into Peripheral Vein, Percutaneous Approach (ICD-10-PCS; principal; 2024-11-23)
PROC: 3E0233Z Introduction of Anti-inflammatory into Muscle, Percutaneous Approach (ICD-10-PCS; 2024-11-23)
PROC: 3E0333Z Introduction of Anti-inflammatory into Peripheral Vein, Percutaneous Approach (ICD-10-PCS; 2024-11-23)
PROC: 3E033GC Introduction of Other Therapeutic Substance into Peripheral Vein, Percutaneous Approach (ICD-10-PCS; 2024-11-23)
DX: S43.401A Unspecified sprain of right shoulder joint, initial encounter (principal); S80.01XA Contusion of right knee, initial encounter; W01.0XXA Fall on same level from slipping, tripping and stumbling without subsequent striking against object, initial encounter; Y93.89 Activity, other specified; Y92.410 Unspecified street and highway as the place of occurrence of the external cause; I71.40 Abdominal aortic aneurysm, without rupture, unspecified; R00.2 Palpitations; M47.892 Other spondylosis, cervical region; R00.1 Bradycardia, unspecified; Z88.5 Allergy status to narcotic agent
CPT/HCPCS: 36415; 70450-TC; 71045-TC-FY; 71250-TC; 72125-TC; 72128-TC; 72131-TC; 73030-TC-RT-FY; 73110-TC-RT-FY; 73130-TC-RT-FY; 73200-TC-RT; 73502-TC-RT-FY; 73562-TC-LT-FY; 73562-TC-RT-FY; 73700-TC-RT; 73721-RT-TC; 80053; 82962; 83735; 83880; 84100; 85025; 85027; 93005; 93010; 93306-TC; 96372; 96374; 96375; 96376; 97116-GP; 97161-GP; 99285-25; G0378; J0131